=== PATIENT | female | born 1995 | race Two or more races ===

== ENCOUNTER 2025-03-06 14:56 | Outpatient (CLI) | payer OTHER | END 2025-03-06 15:01 | disposition home or self-care (01) | LOC: PRENATAL 14:56 | PROVIDERS: ATTEND Obstetrics & Gynecology Maternal & Fetal Medicine | DX: O44.02 Complete placenta previa NOS or without hemorrhage, second trimester (principal); O36.1920 Maternal care for other isoimmunization, second trimester, not applicable or unspecified; O99.342 Other mental disorders complicating pregnancy, second trimester; Z3A.20 20 weeks gestation of pregnancy ==